=== PATIENT | male | born 1960 | race Caucasian/White ===

== ENCOUNTER → 2022-06-01 | Outpatient (CLI) | payer OTHER | LOC: CARD 12:52 | PROVIDERS: ATTEND Internal Medicine Cardiovascular Disease | DX: I11.9 Hypertensive heart disease without heart failure (principal); I25.10 Atherosclerotic heart disease of native coronary artery without angina pectoris | CPT/HCPCS: 93306 ==

== ENCOUNTER 2023-04-30 21:16 | Emergency (ER) | payer OTHER ==
[~2023-04-30] VITALS: Ht 177.8 cm; Wt 136.0 kg
--- NOTE | 2023-04-30 21:55 | ED Lower Extremity ---
General Stated Complaint: PAIN LEFT LEG/KNEE Source: patient, spouse Exam Limitations: other (PT AND SOMEWHAT LIMITED HISTORIANS ABOUT PMH) History of Present Illness Date Seen by Provider: Apr 30, 2023 Time Seen by Provider: 21:47 Initial Comments PT ARRIVES VIA POV FROM HOME, WANTS WHEELCHAIR ON ARRIVAL C/O LEFT KNEE PAIN X 3 DAYS NO INJURY HE HAS CHRONIC BILATERAL LEG PAIN AND SWELLING, AND CHRONIC GENERALIZED ARTHRITIS PAIN HE WAS ON CELEBREX, BUT WAS SWITCHED TO PLAQUENIL BY DR. FLETCHER--PT STATES IT WAS SWITCHED TO HELP REDUCE LEG SWELLING HE DENIES PSORIATIC ARTHRITIS, OR LUPUS, OR RHEUMATOID ARTHRITIS OR GOUT HE DENIES HTN OR ANY HEART PROBLEMS DENIES KIDNEY PROBLEMS PT STATES PAIN IS 7/10 ON STANDING, 2/10 AT REST HE TOOK IBUPROFEN X 1 THIS AM, AND IT HELPED, BUT HAS NOT TAKEN ANYTHING ELSE FOR PAIN PT DENIES ANY OTHER MEDICAL PROBLEMS OR DAILY MEDICATIONS PCP: GAGE ALMONTE [place] Allergies and Home Medications Allergies Coded Allergies: No Known Drug Allergies (Unverified , 04/30/23) Patient Home Medication List Home Medication List Reviewed: Yes Tramadol HCl (Tramadol HCl) 50 Mg Tablet, 50 MG PO Q4H Prescribed by: LIZ KENYON on 04/30/232214 Walker (Ultra-Light Rollator) 1 Each Each, EACH , (DME) Prescribed by: LIZ KENYON on 04/30/232218 Review of Systems Constitutional: no symptoms reported Musculoskeletal: see HPI Skin: no symptoms reported Psychiatric/Neurological: No Symptoms Reported Past Ksmkxpz-Zlwwwg-Whxobi Hx Patient Social History Tobacco Use?: Yes (QUIT SMOKING 5 YEARS AGO) Tobacco type used: Cigarettes Smoking Status: Former Smoker Substance use?: No Alcohol Use?: Yes Alcohol Frequency: Several times a month Past Medical History Surgeries: Yes (HERNIA REPAIR) Abdominal, Tonsillectomy Respiratory: No Cardiac: Yes Chronic Edema/Swelling Neurological: No Genitourinary: No Gastrointestinal: No Musculoskeletal: Yes Arthritis Endocrine: Yes (OBESITY) HEENT: No Cancer: No Psychosocial: No Integumentary: No Blood Disorders: No Physical Exam Vital Signs Vital Signs - First Documented 04/30/23 21:41 Temp 36.8 Pulse 86 Resp 18 B/P (MAP) 128/82 (97) Pulse Ox 94 Capillary Refill : Height, Weight, BMI Height: '" Weight: lbs. oz. kg; BMI Method: General Appearance: WD/WN, no apparent distress, obese Hips: bilateral hip normal inspection Legs: bilateral leg other (3+ EDEMA BILATERALLY. NO TENDERNESS TO CALVES/SHINS OR THIGHS) Knees: right knee normal inspection; left knee other (DIFFUSE TENDERNESS TO LEFT KNEE. NO OBVIOUS SWELLING. NO EXTERNAL EVIDENCE OF TRAUMA. NO GROSS LIGAMENT LAXITY. ) Ankles: bilateral ankle other (3+ EDEMA BILATERLLY. NO TENDERNESS) Feet: bilateral foot other (3+ EDEMA BILATERALLY. NO TENDERNESS) Neurologic/Tendon: normal sensation, normal motor functions, normal tendon functions Neurologic/Psychiatric: no motor/sensory deficits, alert, normal mood/affect, oriented x 3 Skin: normal color, warm/dry Procedures/Interventions Splinting and Joint Reduction : Jose Miguel wrap: Yes Progress/Results/Core Measures Results/Orders My Orders Orders - LIZ KENYON DO Knee, Left, 3 Views (04/30/23 21:49) Jose Miguel Bandage (04/30/23 22:11) Rx-Tramadol Hcl (Rx-Ultram) (04/30/23 22:11) Vital Signs/I&O 04/30/23 21:41 Temp 36.8 Pulse 86 Resp 18 B/P (MAP) 128/82 (97) Pulse Ox 94 Progress Progress Note : Progress Note DISCUSSED XRAYS, NO ACUTE FINDINGS. JOSE MIGUEL WRAP PLACED, PT IS TOO LARGE FOR KNEE IMMOBILIZER NO WALKERS AVAILABLE HERE TONIGHT. WILL WRITE RX FOR WALKER DISCUSSED ANTICIPATED COURSE, SYMPTOMATIC TREATMENT, MEDICATIONS, NEED FOR FOLLOW UP --REFERRED TO ORTHOPEDIC SURGEON, AND RETURN PRECAUTIONS. NO PRIOR VISITS HERE Diagnostic Imaging Comments XRAYS LEFT KNEE--NO ACUTE PROCESS, PENDING RADIOLOGIST REVIEW Reviewed: Reviewed by Me Departure Impression Primary Impression: Left knee pain Disposition: HOME, SELF-CARE Condition: Stable Departure-Patient Inst. Decision time for Depature: 22:10 Referrals: NO,LOCAL PHYSICIAN (PCP) Primary Care Physician HADLEY DAWN MD, MICHAEL P MD Patient Instructions: Knee Pain (DC) Add. Discharge Instructions: JOSE MIGUEL WRAP TO KNEE FOR PAIN AND SWELLING ICE TO AREA AT 20 MINUTE INTERVALS ELEVATE LEG MUCH POSSIBLE USE WALKER NEEDED FOR AMBULATION FOLLOW UP WITH ORTHOPEDIC SURGEON THIS WEEK FOR FURTHER CARE--DR. DAWN OR DR. EATON. OR THROUGH THE [facility] Script[facility] Walker (Ultra-Light Rollator) 1 Each Each EACH for AMBULATION, #1 Prov: LIZ KENYON DO 04/30/23 Tramadol HCl (Tramadol HCl) 50 Mg Tablet 50 MG PO Q4H for Pain, #20 TAB Prov: LIZ KENYON DO 04/30/23 LIZ KENYON DO Apr 30, 2023 21:55
[2023-04-30] MEDS ORDERED: TRAM50TA3 PO (22:14)
[2023-04-30] MEDS ORDERED: WALK1EAC23 MC (22:19)
[2023-04-30 22:31] VITALS: BP 128/82
--- NOTE | 2023-05-01 07:53 | Diagnostic Imaging Report ---
INDICATION: knee pain COMPARISON: None. FINDINGS: 3 views of the left knee joint demonstrate no acute fracture or dislocation. No focal osseous lesions are seen. No significant joint effusion is seen. The surrounding soft tissue structures are unremarkable. There are no radiopaque foreign bodies. IMPRESSION: 1. No acute fractures or dislocations of the left knee joint. I agree with preliminary Emergency Room interpretation. Dictated by: Dictated on workstation # [id number]
== END 2023-04-30 22:25 | disposition home or self-care (01) ==
LOC: EDUNIT# 21:16 → ER 21:20
DX: R60.0 Localized edema (principal); E66.9 Obesity, unspecified; F17.210 Nicotine dependence, cigarettes, uncomplicated; Z68.41 Body mass index [BMI] 40.0-44.9, adult
CPT/HCPCS: 73562

== ENCOUNTER 2023-05-06 00:14 | Emergency (ER) | payer OTHER ==
[~2023-05-06] VITALS: Ht 177.8 cm; Wt 135.0 kg
[~2023-05-06 00:14] MED LIST: TRAM50TA3 PO; WALK1EAC23 MC
[2023-05-06 00:32] VITALS: BP 116/94
[2023-05-06] MEDS ORDERED: TRAM50TA3 PO (00:37)
--- NOTE | 2023-05-06 00:37 | ED Lower Extremity ---
General Chief Complaint: Lower Extremity Stated Complaint: LEFT LEG PX Source: patient, old records, spouse Allergies and Home Medications Allergies Coded Allergies: No Known Drug Allergies (Unverified , 04/30/23) Patient Home Medication List Tramadol HCl (Tramadol HCl) 50 Mg Tablet, 50 MG PO Q4H Prescribed by: LIZ KENYON on 04/30/232214 Walker (Ultra-Light Rollator) 1 Each Each, EACH , (DME) Prescribed by: LIZ KENYON on 04/30/232218 Past Urwfaax-Fejksi-Xqmykx Hx Past Medical History Surgery/Hospitalization HX: TONSILS, HERNIA CHRONIC LE SWELLING Surgeries: Yes (HERNIA REPAIR) Abdominal, Tonsillectomy Respiratory: No Cardiac: Yes Chronic Edema/Swelling Neurological: No Genitourinary: No Gastrointestinal: No Musculoskeletal: Yes Arthritis Endocrine: Yes (OBESITY) HEENT: No Cancer: No Psychosocial: No Integumentary: No Blood Disorders: No Physical Exam Vital Signs Capillary Refill : Height, Weight, BMI Height: '" Weight: lbs. oz. kg; 43.00 BMI Method: Progress/Results/Core Measures Results/Orders My Orders Orders - LIZ KENYON DO Fentanyl Injection (Fentanyl Injection (05/06/23 00:45) Rx-Tramadol Hcl (Rx-Ultram) (05/06/23 00:34) Departure Impression Primary Impression: Left knee pain Disposition: HOME, SELF-CARE Condition: Stable Departure-Patient Inst. Decision time for Depature: 00:35 Referrals: NO,LOCAL PHYSICIAN (PCP) Primary Care Physician HADLEY DAWN MD,KELLI Elias MD Patient Instructions: Knee Sprain (DC) Add. Discharge Instructions: JESUS WRAP FOR COMFORT ALTERNATE ICE AND HEAT TO AREA AT 20 MINUTE INTERVALS ELEVATE LEG MUCH POSSIBLE FOLLOW UP WITH DR. EATON OR DR. DAWN, LOCAL ORTHOPEDIC SURGEONS, OR YOU MAY FOLLOW UP WITH [place] [facility] NEXT WEEK FOR FURTHER CARE All discharge instructions reviewed with patient and/or family. Voiced understanding. Scripts Tramadol HCl (Tramadol HCl) 50 Mg Tablet 50 MG PO Q4H for Pain, #20 TAB Prov: LIZ KENYON DO 05/06/23 LIZ KENYON DO May 06, 2023 00:37
[2023-05-06] MEDS ORDERED: fentaNYL INJECTION 100 MCG/2 ML VIAL IM ONE (00:45)
== END 2023-05-06 01:25 | disposition home or self-care (01) ==
LOC: EDUNIT# 00:14 → ER 00:18
DX: M25.562 Pain in left knee (principal)
CPT/HCPCS: 96372; 99284